=== PATIENT | male | born 1960 | race Caucasian/White ===

== ENCOUNTER → 2017-10-30 | Outpatient (CLI) | payer OTHER ==
--- NOTE | 2017-10-31 13:56 | MRI ---
MRI brain without contrast Indication: Altered mental status Comparison: None Technique: Multiplanar, multi sequence MR images of the brain were obtained without contrast. Findings: There is mild global atrophy with concomitant ventricular and sulcal enlargement. There is no abnormal restricted diffusion to suggest acute or subacute infarct. There is no acute bleed, mass, mass effect, or abnormal extra-axial collection. The major intracranial flow voids are noted. The vi sualized paranasal sinuses and mastoid air cells are grossly clear. Impression: No acute intracranial abnormality or other focal etiology for patient's symptoms. Reported By:
== END ==
LOC: RAD 13:35
PROVIDERS: ATTEND Internal Medicine
DX: R41.82 Altered mental status, unspecified (principal); R27.0 Ataxia, unspecified
CPT/HCPCS: 70551

== ENCOUNTER → 2017-12-19 | Outpatient (CLI) | payer OTHER ==
[2017-12-19 14:32] LABS: BASOPHILS # (AUTO) 0.1 X10^3/uL (0.0-0.1); BASOPHILS % (AUTO) 0.7 % (0.2-1.0); EOSINOPHILS # (AUTO) 0.1 x10^3/uL (0.0-0.2); HEMATOCRIT 36.5 % (42.0-54.0); HEMOGLOBIN 12.5 g/dL (13.5-18.0); LYMPHOCYTES # (AUTO) 2.6 X10^3/uL (1.3-2.9); LYMPHOCYTES % (AUTO) 25.2 % (21.0-51.0); MEAN CORPUSCULAR HEMOGLOBIN 28.4 pg (27.0-34.0); MEAN CORPUSCULAR HGB CONC 34.3 g/dL (33.0-35.0); MEAN CORPUSCULAR VOLUME 82.7 fL (80.0-100.0); MEAN PLATELET VOLUME 8.1 fL (7.4-11.0); MONOCYTES # (AUTO) 0.8 x10^3/uL (0.3-0.8); NEUTROPHILS # (AUTO) 6.8 x10^3/uL (2.2-4.8); NEUTROPHILS % (AUTO) 65.1 % (42.0-75.0); PLATELET COUNT 245 X10^3/uL (150.0-450.0); RED BLOOD COUNT 4.41 X10^6/uL (4.7-6.0); RED CELL DISTRIBUTION WIDTH 14.2 % (11.6-16.5); WHITE BLOOD COUNT 10.5 X10^3/uL (3.6-10.0)
[2017-12-19 14:46] LABS: ALANINE AMINOTRANSFERASE 24 Units/L (12-78); ALBUMIN 3.8 g/dL (3.4-5.0); ALKALINE PHOSPHATASE 68 Units/L (46-116); ASPARTATE AMINO TRANSFERASE 13 Units/L (15-37); BLOOD UREA NITROGEN 21 mg/dL (7-18); CALCIUM 8.7 mg/dL (8.5-10.1); CARBON DIOXIDE 26.9 mmol/L (21-32); CHLORIDE 98 mmol/L (98-107); COR NA(FOR HYPERGLY) 140 mmol/L (136-145); CREATININE 1.78 mg/dL (0.70-1.30); SODIUM 136 mmol/L (136-145); TOTAL PROTEIN 7.8 g/dL (6.4-8.2); eGFR BLACK RACES 51 (>60); eGFR NON BLACK RACES 42 (>60)
== END ==
LOC: LAB 14:08
PROVIDERS: ATTEND Internal Medicine Gastroenterology
DX: K92.1 Melena (principal); K64.8 Other hemorrhoids
CPT/HCPCS: 36415; 80053; 85025

== ENCOUNTER 2018-01-11 06:57 | Day surgery (SDC) | payer OTHER ==
[2018-01-11] MEDS ORDERED: D5 LR 1000 ML 1,000 ML IV ONE (07:09)
[2018-01-11] MEDS ORDERED: DIPRIVAN VIAL 20 ML ONE (08:40)
[2018-01-11 09:23] VITALS: BP 127/67
== END 2018-01-11 09:20 | disposition home or self-care (01) | DRG 392 ==
LOC: SURG1 06:57
PROVIDERS: ATTEND Internal Medicine Gastroenterology
PROC: 0DJD8ZZ Inspection of Lower Intestinal Tract, Via Natural or Artificial Opening Endoscopic (ICD-10-PCS; principal; 2018-01-11 09:15)
PROC: 0DBE8ZX Excision of Large Intestine, Via Natural or Artificial Opening Endoscopic, Diagnostic (ICD-10-PCS; principal; 2018-01-11 09:15)
DX: R19.4 Change in bowel habit (principal); K92.1 Melena; R10.84 Generalized abdominal pain; K64.0 First degree hemorrhoids
CPT/HCPCS: A4217; J3490; J7120

== ENCOUNTER 2018-01-18 08:45 | Day surgery (SDC) | payer OTHER ==
[2018-01-18] MEDS ORDERED: NS 1000 ML 1,000 ML ONE (09:37)
[2018-01-18] MEDS ORDERED: DIPRIVAN VIAL 20 ML ONE (11:32)
[2018-01-18 14:37] VITALS: BP 136/83
== END 2018-01-18 12:05 | disposition home or self-care (01) ==
LOC: SURG1 08:45
PROVIDERS: ATTEND Internal Medicine Gastroenterology
PROC: 0DB68ZX Excision of Stomach, Via Natural or Artificial Opening Endoscopic, Diagnostic (ICD-10-PCS; principal; 2018-01-18 12:00)
PROC: 0DJ08ZZ Inspection of Upper Intestinal Tract, Via Natural or Artificial Opening Endoscopic (ICD-10-PCS; principal; 2018-01-18 12:00)
PROC: 0DB88ZX Excision of Small Intestine, Via Natural or Artificial Opening Endoscopic, Diagnostic (ICD-10-PCS; principal; 2018-01-18 12:00)
DX: K21.9 Gastro-esophageal reflux disease without esophagitis (principal); K29.60 Other gastritis without bleeding; K20.8 Other esophagitis; K22.8 Other specified diseases of esophagus; Z87.19 Personal history of other diseases of the digestive system
CPT/HCPCS: A4217; J3490

== ENCOUNTER → 2018-02-19 | Outpatient (CLI) | payer OTHER ==
--- NOTE | 2018-02-19 10:51 | MRI ---
MRI lumbar spine without contrast Indication: Lower back pain Technique: Multiplanar, multi sequence imaging of the lumbar spine without IV contrast administration . Findings: Lumbar spine alignment is normal. There is no significant disc space loss or disc desiccati on within the lumbar spine. No prevertebral or paraspinal soft tissue swelling. No localizing bone ma rrow signal abnormality within the lumbar spine. Conus has a normal termination. Visualized portions of the abdomen and pelvis demonstrates no acute inflammatory process. At T12-L1 unremarkable aside for mild facet arthropathy. At L1-2 unremarkable aside for mild facet arthropathy. At L2-3 unremarkable aside for mild facet arthropathy. At L3-4 unremarkable aside for mild facet arthropathy and ligamentum flavum hypertrophy At L4-5 broad-based disc bulge and facet arthropathy causes mild spinal canal stenosis with mild-to-m oderate right and minimal left-sided bony neural foraminal stenosis At L5-S1 minimal broad-based disc bulge with left greater than right facet arthropathy causes no spin al canal stenosis with very mild right and [id number] left-sided bony neural foraminal stenosis . Impression: Multilevel discogenic degenerative change and facet arthropathy causing varying degrees o f spinal canal and bony neural foraminal stenosis as described above. Reported By:
== END | disposition home or self-care (01) ==
LOC: RAD 09:13
PROVIDERS: ATTEND Internal Medicine
DX: M51.26 Other intervertebral disc displacement, lumbar region (principal); M47.896 Other spondylosis, lumbar region
CPT/HCPCS: 72148

== ENCOUNTER 2023-09-05 15:37 | Observation (INO) ==
--- NOTE | 2023-09-05 16:57 | DR.DIZZY ---
HPI Time seen Time Seen by Provider: 09/05/23 16:56 PCP Primary Care Physician: Luis A Complaint Chief Complaint Doctor Comments: 63-year-old male presents with dizziness and near syncope. Has been having episodes over the past 3 months. Patient on b lood pressure medications, saw Dr. Gunn last week, blood pressure was low but he did not have any medicines decreased. BP low at triage today. Denies fever, chills, upper respiratory symptoms, vomiting or diarrhea. No bladder issues other than increased voiding. Patient does not have any injuries from his fall today. Chief Complaint:: Pt c/o dizziness, increased voiding, diarrhea. Pt states he fell around 12pm today at home, hit head on the floor, did not lose consc iousness, needed help getting out of floor, states typically he is independent at home. denies nausea, vomitting, chest pain, abdominal pain Self Treatment fo Chief Complaint: took prescribed meds this am, including BP meds. COVID-19 Coronavirus risk:travel/contact w/high risk person: No Has patient experienced Coronavirus symptoms: No Nurses Notes Reviewed Nurses Notes Review: Yes Source History Provided: Patient Mode of Arrival Mode of Arrival: Wheelchair Timing Onset of Chief Complaint: 09/05/23 Context Stroke Symptoms: None PMH PMH Past Medical History: Yes Past Medical History: Anxiety, COPD, Depression, Diabetes, Hypertension and Sleep Apnea Past Surgical History: Yes Surgical History: Other Family History History of Family Medical Conditions: Yes Family Medical History: Diabetes Mellitus and Hypertension Social History Does patient currently use any type of tobacco product: No Have you used tobacco products in the last 12 months: No Type of Tobacco Use: None Does any household member use tobacco: No Alcohol Use: None Do you use any recreational Drugs:: No Lives With: Family Lives Where: Home Travel Risk Coronavirus risk:travel/contact w/high risk person: No Has patient experienced Coronavirus symptoms: No Infectious screening In the last 2 months have you had wt loss of >10#?: NO Have you had fever, night sweats or hemotysis?: No Have you traveled outside the country in the last 6 months?: No Isolation: Standard ROS Review of Systems Constitutional: Weakness Eyes: No Symptoms Reported ENTM: No Symptoms Reported Respiratoy: No Symptoms Reported Cardiovascular: No Symptoms Reported Gastrointestinal/Abdominal: No Symptoms Reported Genitourinary: No Symptoms Reported Neurological: Weakness Musculoskeletal: No Symptoms Reported Integumentary: No Symptoms Reported Hematologic/Lymphatic: No Symptoms Reported All Other Systems: Reviewed and Negative PE Vital Signs Vitals: Vital Signs Temperature 98.9 F Pulse Rate 80 Pulse Rate 80 Pulse Rate 80 Pulse Rate 81 Pulse Rate 80 Pulse Rate 85 Pulse Rate 79 Pulse Rate 80 Pulse Rate 82 Pulse Rate 81 Pulse Rate 80 Pulse Rate 81 Pulse Rate 81 Respiratory Rate 15 Respiratory Rate 16 Respiratory Rate 15 Respiratory Rate 16 Respiratory Rate 16 Respiratory Rate 35 Respiratory Rate 15 Respiratory Rate 16 Respiratory Rate 38 Respiratory Rate 23 Respiratory Rate 19 Respiratory Rate 12 Respiratory Rate 16 Blood Pressure 150/70 Blood Pressure 122/60 Blood Pressure 121/67 Blood Pressure 123/58 Blood Pressure 105/52 Blood Pressure 86/54 O2 Sat by Pulse Oximetry 96 O2 Sat by Pulse Oximetry 98 O2 Sat by Pulse Oximetry 98 O2 Sat by Pulse Oximetry 94 General General Appearance: Alert and In No Apparent Distress Head Head Exam: Normal Inspection, Atraumatic and Normocephalic Eyes Eye exam: PERRL and EOMI ENT ENT Exam: Normal Exam, Normal Oropharynx and Mucous Membranes Moist Neck Neck Exam: Normal Inspection and Full ROM Respiratory Respiratory Exam: Normal Lung Sounds Bilat; negative Accessory Muscle Use or Respiratory Distress Cardiovascular Cardiovascular Exam: Regular Rate, Normal Rhythm and Normal Heart Sounds Abdominal Exam Abdominal Exam: Normal Bowel Sounds and Soft; negative Tenderness Extremeties Extremities Exam: Normal Inspection; negative Edema Neurologic Neurological Exam: Alert, Oriented X3 and CN II-XII Intact; negative Motor Sensory Deficit Skin Skin Exam: Warm and Dry COURSE Treatment Treatment: 63-year-old male on multiple medications presents with near syncopal episode. BP on arrival was 86/54. Denies any acute losses, no vomiting or diarrhea. Reportedly was seen in the office last week with the blood pressure being somewhat low, no medications were adjusted. Work-up initiated. Patient hit his head today, no visible wounds. CT of the brain was unremarkable. Labs overall acceptable. He does have chronic renal insufficiency. Currently his BUN/creatinine are higher than usual. Probably his degree of volume depletion. Blood pressure came up after giving IV fluids. Recommend observation admission for further fluids, further evaluation. 2003 -discussed with Dr. Chang (covering for Dr. Gunn). Agrees to observation admission. Will continue IV fluids. Baseline admission orders written, needs to have home meds updated, would hold some of his BP meds. ROR Labs Reviewed Laboratory Results Reviewed?: Yes 09/06/23 04:03 09/06/23 04:03 Laboratory: WBC 10.9 X10^3/uL (3.6-10.0) H 09/05/23 17:30 RBC 4.06 X10^6/uL (4.7-6.0) L 09/05/23 17:30 Hgb 11.6 g/dL (13.5-18.0) L 09/05/23 17:30 Hct 34.1 % (42.0-54.0) L 09/05/23 17:30 MCV 84.1 fL (80.0-100.0) 09/05/23 17:30 MCH 28.5 pg (27.0-34.0) 09/05/23 17: MCHC 33.9 g/dL (33.0-35.0) 09/05/23 17:30 RDW 14.8 % (11.6-16.5) 09/05/23 17:30 Plt Count 229 X10^3/uL (150.0-450.0) 09/05/23 17:30 MPV 6.9 fL (7.4-11.0) L 09/05/23 17:30 Neut % (Auto) 75.7 % (42.0-75.0) H 09/05/23 17:30 Lymph % (Auto) 13.0 % (21.0-51.0) L 09/05/23 17:30 [place] % (Auto) 8.7 % (0.0-13.0) 09/05/23 17:30 Eos % (Auto) 2.1 % (0.9-2.9) 09/05/23 17:30 Baso % (Auto) 0.5 % (0.2-1.0) 09/05/23 17:30 Neut # (Auto) 8.3 x10^3/uL (2.2-4.8) H 09/05/23 17:30 Lymph # (Auto) 1.4 X10^3/uL (1.3-2.9) 09/05/23 17:30 [place] # (Auto) 0.9 x10^3/uL (0.3-0.8) H 09/05/23 17:30 Eos # (Auto) 0.2 x10^3/uL (0.0-0.2) 09/05/23 17:30 Baso # (Auto) 0.1 X10^3/uL (0.0-0.1) 09/05/23 17:30 Absolute Nucleated RBC 0.1 /100WBC 09/05/23 17:30 Sodium 134 mmol/L (136-145) L 09/05/23 17:30 Corrected Sodium 135 mmol/L (136-145) L 09/05/23 17:30 Potassium 4.5 mmol/L (3.5-5.1) 09/05/23 17:30 Chloride 101 mmol/L (98-107) 09/05/23 17:30 Carbon Dioxide 30.6 mmol/L (21-32) 09/05/23 17:30 BUN 55 mg/dL (7-18) H 09/05/23 17:30 Creatinine 2.97 mg/dL (0.70-1.30) H 09/05/23 17:30 Est GFR (MDRD) Af Amer 28 (>60) L 09/05/23 17:30 Est GFR (MDRD) Non-Af 23 (>60) L 09/05/23 17:30 Glucose 143 mg/dL (65-99) H 09/05/23 17:30 Calcium 8.2 mg/dL (8.5-10.1) L 09/05/23 17:30 Corrected Calcium TNP 09/05/23 17:30 Total Bilirubin 0.30 mg/dL (0.2-1.0) 09/05/23 17:30 AST 13 Units/L (15-37) L 09/05/23 17:30 ALT 14 Units/L (12-78) 09/05/23 17:30 Alkaline Phosphatase 115 Units/L (46-116) 09/05/23 17:30 Creatine Kinase 123 Units/L (39-308) 09/05/23 17:30 Troponin I High Sens 7.3 ng/L (4.0-60.0) 09/05/23 17:30 B-Natriuretic Peptide 7.7 pg/mL (0-79) 09/05/23 17:30 Total Protein 7.1 g/dL (6.4-8.2) 09/05/23 17:30 Albumin 3.4 g/dL (3.4-5.0) 09/05/23 17:30 Globulin 3.7 g/dL (2.5-4.5) 09/05/23 17:30 Albumin/Globulin Ratio 0.9 Ratio (1.1-2.1) L 09/05/23 17:30 Specimen Type Clean catch urine 09/05/23 18:46 Urine Color Yellow (YELLOW) 09/05/23 18:46 Urine Appearance Clear (CLEAR) 09/05/23 18:46 Urine pH 5.0 (5.0 - 8.0) 09/05/23 18:46 Ur Specific [place] 1.025 (1.000-1.030) 09/05/23 18:46 Urine Protein 2+ (NEGATIVE) 09/05/23 18:46 Urine Glucose (UA) 3+ (NEGATIVE) 09/05/23 18:46 Urine Ketones Negative (NEGATIVE) 09/05/23 18:46 Urine Blood Negative (NEGATIVE) 09/05/23 18:46 Urine Nitrite Negative (NEGATIVE) 09/05/23 18:46 Urine Bilirubin Negative (NEGATIVE) 09/05/23 18:46 Urine Urobilinogen Normal (NORMAL) 09/05/23 18:46 Ur Leukocyte Esterase Negative (NEGATIVE) 09/05/23 18:46 Urine RBC 0-2 /HPF (0-3) 09/05/23 18:46 Urine WBC 0-2 /HPF (0-5) 09/05/23 18:46 Ur Squamous Epith Cells Few /HPF (NEGATIVE) 09/05/23 18:46 Urine Bacteria Trace /HPF (NEGATIVE) 09/05/23 18:46 Hyaline Casts Moderate /LPF (NEGATIVE) 09/05/23 18:46 Urine Mucus Few /HPF (NEGATIVE) 09/05/23 18:46 Ur Culture Indicated? No/not indicated 09/05/23 18:46 Labs show worsening kidney numbers XRAY XRAY Interpreted by: Both X-ray Results: Cardiomegaly present EKG Rate: 80 [place]: LAD Rhythm: NSR Block: 1 and RBBB (With left anterior fascicular block) ST: Nonsp Opioid Opioid Risk Tool Age (Armando box if 16-45): No History of Preadolescent Sexual Abuse: No Total: 0 Total Score Risk Category: Low Risk Copyright: Anton SANTIZO predicting aberrant behaviors Discharge Plan Diagnosis Discharge Problem: Acute hypotension, Volume depletion Discharge Plan Patient Disposition: 09 ADMITTED INPATIENT Condition: Stable
[2023-09-05] MEDS ORDERED: NS 1,000 ML IV 1,000 ML IV ONE (17:01)
[2023-09-05] MEDS ORDERED: NS 1,000 ML IV 1,000 ML ONE (17:27)
--- NOTE | 2023-09-05 17:29 | CT ---
EXAM:BRAIN W/O CONHISTORY:syncope, fall, off balance;COMPARISON:Head CT examination dated May 07, 2023TECHNIQUE:Multiple helical images of the brain from the vertex to the occiput were obtained. Coronal and sagittal reformats were performed.Dose reduction techniques including Automated Exposure Control (AEC) and adjustment of mA and kV were utilized.FINDINGS:No acute intraparenchymal hemorrhage or cytotoxic edema is identified. No extra-axial fluid collections are seen. No alteration in the attenuation of the brain parenchyma can be identified to suggest acute or subacute ischemic change. However, if the patients symptoms are clinically & neurologically concerning for an acute ischemic event, then MR imaging of the brain with DWI sequencing could be considered to exclude an acute CVA (based on this patient's clinical presentation and the specific medical circumstances). Also, if there remains strong concern for an intracranial neoplasm or mass, then follow-up with CT or MR imaging of the brain with IV contrast is recommended for improved inspection (which would be more sensitive for the assessment of any intracranial neoplasia). The ventricular system is symmetric and nondilated. The extracranial structures are grossly unremarkable. The visualized paranasal sinuses and mastoid air cells are relatively clear on this examination as well.IMPRESSION:Negative Head CT Exam.THIS IS AN ELECTRONICALLY VERIFIED FINAL [id number]/05/2023 5:25 PM - Electronically signed by Catarino Durbin
--- NOTE | 2023-09-05 17:33 | RAD ---
EXAM:CHEST, 1 VIEWHISTORY:syncope;COMPARISON:Chest CT examination dated May 07, 2022FINDINGS:The trachea is midline. The cardiac silhouette is enlarged. The lungs are clear without focal infiltrate or effusion. The bony thorax is unremarkable.IMPRESSION:Enlarged cardiomediastinal silhouette without additional cardiopulmonary abnormalities seen.THIS IS AN ELECTRONICALLY VERIFIED FINAL [id number]/05/2023 5:30 PM - Electronically signed by Catarino Durbin
[2023-09-05 17:39] LABS: BASOPHILS # (AUTO) 0.1 X10^3/uL (0.0-0.1); BASOPHILS % (AUTO) 0.5 % (0.2-1.0); EOSINOPHILS # (AUTO) 0.2 x10^3/uL (0.0-0.2); EOSINOPHILS % (AUTO) 2.1 % (0.9-2.9); HEMATOCRIT 34.1 % (42.0-54.0); HEMOGLOBIN 11.6 g/dL (13.5-18.0); LYMPHOCYTES # (AUTO) 1.4 X10^3/uL (1.3-2.9); MEAN CORPUSCULAR HEMOGLOBIN 28.5 pg (27.0-34.0); MEAN CORPUSCULAR HGB CONC 33.9 g/dL (33.0-35.0); MEAN CORPUSCULAR VOLUME 84.1 fL (80.0-100.0); MEAN PLATELET VOLUME 6.9 fL (7.4-11.0); MONOCYTES # (AUTO) 0.9 x10^3/uL (0.3-0.8); MONOCYTES % (AUTO) 8.7 % (0.0-13.0); NEUTROPHILS # (AUTO) 8.3 x10^3/uL (2.2-4.8); NEUTROPHILS % (AUTO) 75.7 % (42.0-75.0); PLATELET COUNT 229 X10^3/uL (150.0-450.0); RED BLOOD COUNT 4.06 X10^6/uL (4.7-6.0); RED CELL DISTRIBUTION WIDTH 14.8 % (11.6-16.5); WHITE BLOOD COUNT 10.9 X10^3/uL (3.6-10.0)
--- NOTE | 2023-09-05 17:44 | EKG ---
Test Reason : syncope Blood Pressure : */* mmHG Vent. Rate : 80 BPM Atrial Rate : 80 BPM P-R Int : 236 ms QRS Dur : 174 ms QT Int : 442 ms P-R-T Axes : 46 -54 26 degrees QTc Int : 509 ms Sinus rhythm with 1st degree AV block Right bundle branch block Left anterior fascicular block Bifascicular block Abnormal ECG When compared with ECG of 07-MAY-2023 12:42, No significant change was found Confirmed by Gagandeep Peraza ([id number]) on 09/06/2023 12:21:55 PM Referred By: Confirmed By: Gagandeep Peraza
[2023-09-05 17:52] LABS: ALANINE AMINOTRANSFERASE 14 Units/L (12-78); ALBUMIN 3.4 g/dL (3.4-5.0); ALKALINE PHOSPHATASE 115 Units/L (46-116); ASPARTATE AMINO TRANSFERASE 13 Units/L (15-37); BLOOD UREA NITROGEN 55 mg/dL (7-18); CALCIUM 8.2 mg/dL (8.5-10.1); CARBON DIOXIDE 30.6 mmol/L (21-32); CHLORIDE 101 mmol/L (98-107); COR NA(FOR HYPERGLY) 135 mmol/L (136-145); CREATINE KINASE 123 Units/L (39-308); CREATININE 2.97 mg/dL (0.70-1.30); GLUCOSE 143 mg/dL (65-99); POTASSIUM 4.5 mmol/L (3.5-5.1); SODIUM 134 mmol/L (136-145); TOTAL PROTEIN 7.1 g/dL (6.4-8.2); eGFR NON BLACK RACES 23 (>60)
[2023-09-05 18:55] LABS: BILIRUBIN,URINE NEGATIVE (NEGATIVE); BLOOD/HEMOGLOBIN,URINE NEGATIVE (NEGATIVE); GLUCOSE, URINE 3+ (NEGATIVE); KETONES,URINE NEGATIVE (NEGATIVE); LEUKOCYTE ESTERASE ,URINE NEGATIVE (NEGATIVE); NITRITES,URINE NEGATIVE (NEGATIVE); PROTEIN,URINE 2+ (NEGATIVE); UROBILINOGEN,URINE NORMAL (NORMAL)
[2023-09-05 18:59] LABS: APPEARANCE,URINE CLEAR (CLEAR); COLOR,URINE YELLOW (YELLOW)
[2023-09-05 19:00] LABS: BACTERIA,URINE TRACE /HPF (NEGATIVE); HYALINE CASTS, URINE MODERATE /LPF (NEGATIVE); RBC,URINE 0-2 /HPF (0-3); SQUAMOUS EPITHELIAL CELL,UR FEW /HPF (NEGATIVE)
[2023-09-05 21:42] VITALS: BMI 43.4
[2023-09-05] MEDS ORDERED: CONSULT PHARMACY - POTASSIUM & MAGNESIUM XX SCH (21:48)
[2023-09-05] MEDS: D5 1/2 NS 1,000 ML 1,000 ML IV SCH (21:50)
[2023-09-06 04:59] LABS: BASOPHILS # (AUTO) 0.1 X10^3/uL (0.0-0.1); BASOPHILS % (AUTO) 0.7 % (0.2-1.0); EOSINOPHILS # (AUTO) 0.2 x10^3/uL (0.0-0.2); EOSINOPHILS % (AUTO) 2.4 % (0.9-2.9); HEMATOCRIT 34.7 % (42.0-54.0); HEMOGLOBIN 11.6 g/dL (13.5-18.0); LYMPHOCYTES # (AUTO) 1.6 X10^3/uL (1.3-2.9); LYMPHOCYTES % (AUTO) 18.5 % (21.0-51.0); MEAN CORPUSCULAR HEMOGLOBIN 28.1 pg (27.0-34.0); MEAN CORPUSCULAR HGB CONC 33.4 g/dL (33.0-35.0); MEAN CORPUSCULAR VOLUME 84.1 fL (80.0-100.0); MEAN PLATELET VOLUME 7.3 fL (7.4-11.0); MONOCYTES # (AUTO) 0.6 x10^3/uL (0.3-0.8); MONOCYTES % (AUTO) 7.4 % (0.0-13.0); NEUTROPHILS # (AUTO) 6.2 x10^3/uL (2.2-4.8); PLATELET COUNT 236 X10^3/uL (150.0-450.0); RED BLOOD COUNT 4.13 X10^6/uL (4.7-6.0); RED CELL DISTRIBUTION WIDTH 14.4 % (11.6-16.5); WHITE BLOOD COUNT 8.7 X10^3/uL (3.6-10.0)
[2023-09-06 05:18] LABS: ALBUMIN 3.2 g/dL (3.4-5.0); CARBON DIOXIDE 29.4 mmol/L (21-32); COR CA(FOR HYPOALB) 8.6 mg/dL (8.5-10.1); CREATININE 2.4 mg/dL (0.70-1.30); POTASSIUM 3.7 mmol/L (3.5-5.1); TOTAL PROTEIN 6.9 g/dL (6.4-8.2)
[2023-09-06] MEDS ORDERED: CONSULT PHARMACY - POTASSIUM & MAGNESIUM XX SCH (06:00)
[2023-09-06] MEDS: D5 1/2 NS 1,000 ML 1,000 ML IV SCH ×4 (06:25→22:21)
[2023-09-06] MEDS: LOVENOX INJ 40 MG SYR SC SCH (08:44)
[2023-09-06] MEDS: PULMICORT NEB TX 0.5 MG NEB SCH ×2 (08:53→21:00)
[2023-09-06] MEDS: PROVENTIL NEB TX 0.083% 2.5MG/ 3ML NEB SCH ×2 (08:53→21:00)
[2023-09-06] MEDS ORDERED: MICRO K EXTEN CAP 10 MEQ PO SCH (09:00)
[2023-09-06] MEDS ORDERED: NovoLIN R (or HumuLIN R) SUBCUT PRN (11:34)
--- NOTE | 2023-09-06 11:34 | DR.H&P ---
H&P - History & Physical for Day of: H&P Date: 09/05/23 - Chief Complaint Chief Complaint: DIZZINESS, FAINT, INCREASED VOIDING - History of Present Illness History of Present Illness: IS A 63 YEAR OLD PATIENT OF OURS. HE HAS A PMH OF ANXIETY, COPD, DEPRESSION, DM II, HTN, HYPERLIPIDEMIA, HYPOTHYROIDISM, CHF, AND SLEEP APNEA. HE PRESENTED TO THE HOSPITAL WITH COMPLAINTS OF DIZZINESS, FEELING FAINT, AND INCREASED VOIDING. PATIENT REPORTS THAT HE FELL AT HOME EARLIER IN THE DAY. HE ADMITS TO HITTING HIS HEAD ON THE FLOOR, BUT DID NOT LOSE CONSCIOUNESS. HE REPORTS THAT HE IS TYPICALLY INDEPENDENT AT HOME. HE REPORTS THAT HIS BLOOD PRESSURE HAS BEEN LOW FOR THE PAST FEW WEEKS, BUT THAT HE HAS JUST BEEN MONITORING IT. HE DENIES FEVER, CHILLS, UPPER RESPIRATORY SX, VOMITING, OR DIARRHEA. HE DOES NOT HAVE ANY VISABLE INJURIES FROM HIS FALL EARLIER IN THE DAY. HE IS ABLE TO ANSWER QUESTIONS AND FOLLOW COMMANDS APPROPRIATELY ON EXAMINATION. ON ARRIVAL, HIS VITALS WERE: 98.9-81-16-94%-86/54. LABS WERE OBTAINED. WBC 10.9, RBC 4.06, HGB 11.6, HCT 34.1, PLT COUNT 229, SODIUM 134, POTASSIUM 4.5, CHLORIDE 101, CARBON DIOXIDE 30.6, BUN 55, CREATININE 2.97, GLUCOSE 143, CALCIUM 8.2, TOTAL BILI 0.30, AST 13, ALT 14, ALK PHOS 115, CREATINE KINASE 123, TROPONIN 7.3, BNP 7.7, TOTAL PROTEIN 7.1, ALBUMIN 3.4. URINALYSIS WAS OBTAINED AND WAS UNREMARKABLE. A BRAIN CT WAS OBTAINED AND REVEALED: Negative Head CT Exam. A CHEST XRAY WAS OBTAINED AND REVEALED: Enlarged cardiomediastinal silhouette without additional cardiopulmonary abnormalities seen. EKG WAS OBTAINED AND REVEALED SINUS RHYTHM WITH 1ST DEGREE AV BLOCK AT 80 BPM. IN THE ER, HE WAS GIVEN A NORMAL SALINE BOLUS. HIS BLOOD PRESSURE INCREASED TO 123/58. PATIENT WAS ADMITTED TO THE HOSPITAL, OBSERVATION STATUS, FOR FURTHER EVALUATION AND TREATMENT OF ACUTE ON CHRONIC R ENAL FAILURE, DEHYDRATION, ACUTE HYPOTENSION. HE WAS STARTED ON D51/2 NS AT 125 ML/HR, ALBUTEROL NEBS BID, PULMICORT NEBS BID, LOVENOX 40MG SC DAILY. WE WILL RESUME HIS HOME MEDICATIONS OF VENLAFAXINE, TRAZODONE, ROSUVASTATIN, QUETIAPINE, LITHIUM CARBONATE, LEVOTHYROXINE, GLIMEPIRIDE, GABAPENTIN, CLONAZEPAM, AND CARBIDOPA-LEVODOPA. OTHERWISE, WE PLAN TO FOLLOW UP WITH AM LABS AND CONTINUE TO MONITOR. TIME SPENT ON CLINICAL ASSESSMENT, REVIEWING LABS AND IMAGING, DECISION MAKING, AND DOCUMENTATION GREATER THAN 75 MINUTES. - Past Medical History Past Medical History: Anxiety, COPD, Depression, Diabetes, Dyslipidemia, Hypertension, Hypothyroidism, Sleep Apnea - Past Surgical History Surgical History: Other - Family History Family Medical History: Diabetes Mellitus, Cancer - Social History Does patient currently use any type of tobacco product: No Have you used tobacco products in the last 12 months: No Type of Tobacco Use: None Does any household member use tobacco: No Alcohol Use: None Drug Use: None - Review of Systems Constitutional: Weakness. denies: Fever, Chills Eyes: No Symptoms Reported ENT: No Symptoms Reported Respiratory: No Symptoms Reported Cardiovascular: Light Headedness Gastrointestinal: No Symptoms Reported Genitourinary: No Symptoms Reported Musculoskeletal: No Symptoms Reported Skin: No Symptoms Reported Neurological: Weakness - Physical Exam Vital Signs: Vital Signs Temperature 97.9 F Temperature 97.2 F Pulse Rate [Radial] 78 Pulse Rate [Radial] 77 Pulse Rate 77 Respiratory Rate 20 Respiratory Rate 20 Blood Pressure [Right Arm] 149/67 Blood Pressure [Right Arm] 177/79 O2 Sat by Pulse Oximetry 99 O2 Sat by Pulse Oximetry 95 O2 Sat by Pulse Oximetry 99 Oriented: Normal Eyes: Normal Ear: Normal Nose: Normal Throat: Normal Respiratory: Diminished Throughout Cardiovascular: Normal : Normal Auscultation: Bowel Sounds: Normal Palpation: Normal Tenderness: Normal Skin: Normal Musculoskeletal: Normal Psychiatric: Normal Mood Description: Calm Affect: Normal Speech Pattern: Clear - Assessment/Plan (1) Acute on chronic renal failure Qualifiers: Acute renal failure type: unspecified Chronic kidney disease stage: unspecified stage Qualified Code(s): N17.9 - Acute kidney failure, unspecified; N18.9 - Chronic kidney disease, unspecified Status: Acute Plan: ADMIT, D51/2 NS AT 125 ML/HR, ALBUTEROL NEBS BID, PULMICORT NEBS BID, LOVENOX 40MG SC DAILY, OTBS ACHS, HUMULIN R SLIDING SCALE. RESUME HOME MEDS (2) Dehydration Status: Acute (3) Acute hypotension Status: Acute (4) COPD (chronic obstructive pulmonary disease) Qualifiers: COPD type: unspecified COPD Qualified Code(s): J44.9 - Chronic obstructive pulmonary disease, unspecified Status: Chronic (5) Diabetes mellitus Qualifiers: Diabetes mellitus type: type 2 Diabetes mellitus skill labor insulin use: with senior care use Diabetes mellitus complication status: with hyperglycemia Qualified Code(s): E11.65 - Type 2 diabetes mellitus with hyperglycemia; Z79.4 - prison (current) use of insulin Status: Acute (6) Depression Qualifiers: Depression Type: unspecified Qualified Code(s): F32.A - Depression, unspecified Status: Chronic Plan: RESUME HOME MEDS (7) Hyperlipidemia Qualifiers: Hyperlipidemia type: mixed hyperlipidemia Qualified Code(s): E78.2 - Mixed hyperlipidemia Status: Chronic Plan: RESUME HOME MEDS (8) Hypothyroidism Qualifiers: Hypothyroidism type: acquired Qualified Code(s): E03.9 - Hypothyroidism, unspecified Status: Chronic Plan: RESUME HOME MEDS - Allergies Allergies/Adverse Reactions: Allergies Allergy/AdvReac Type Severity Reaction Status Date / Time No Known Drug Allergies Allergy Verified 11/04/19 14:52 - Medications Home Medications: Home Medications Medication Instructions Recorded Confirmed carbidopa 10 mg-levodopa 100 mg 1 tab PO TID 05/07/23 09/05/23 tablet clonazepam 1 mg tablet 1 tab PO HS 05/07/23 09/05/23 furosemide 20 mg tablet 1 tab PO BID 05/07/23 09/05/23 gabapentin 100 mg capsule 1 cap PO TID 05/07/23 09/05/23 glimepiride 4 mg tablet 1 tab PO BID 05/07/23 09/05/23 levothyroxine 88 mcg tablet 1 tab PO QAM 05/07/23 09/05/23 lithium carbonate 150 mg capsule 1 cap PO BID 05/07/23 09/05/23 losartan 100 mg tablet 1 tab PO QAM 05/07/23 09/05/23 meclizine 25 mg tablet 2 tab PO BID 05/07/23 05/07/23 metoprolol succinate 25 mg 1 tab PO QDAY 05/07/23 05/07/23 tablet,extended release 24 hr ondansetron HCl 4 mg tablet 1 tab PO TID PRN nausea/vomiting 05/07/23 05/07/23 quetiapine 200 mg tablet 1 tab PO BID 05/07/23 09/05/23 rosuvastatin 20 mg tablet 1 tab PO QPM 05/07/23 09/05/23 semaglutide 2 mg/dose (8 mg/3 mL) 2 mg subcut QWEEK 05/07/23 09/05/23 subcutaneous pen injector (Ozempic) trazodone 150 mg tablet 1 tab PO QPM 05/07/23 09/05/23 venlafaxine 150 mg 1 cap PO QDAY 05/07/23 09/05/23 capsule,extended release 24 hr
[2023-09-06] MEDS: SYNTHROID 88 mcg TAB PO SCH (12:28)
[2023-09-06] MEDS: EFFEXOR XR 150 MG CAP 24-HR PO SCH (12:28)
[2023-09-06] MEDS: AMARYL TAB 4 MG PO SCH ×2 (12:28→22:05)
[2023-09-06] MEDS ORDERED: SINEMET (PLAIN) 10/100 MG PO SCH (14:00)
[2023-09-06] MEDS: NEURONTIN CAP 100 MG PO SCH ×2 (14:44→22:05)
[2023-09-06] MEDS: LITHIUM CARBONATE 150 MG PO SCH ×2 (14:44→22:08)
[2023-09-06] MEDS ORDERED: SNACK - Diabetic Appropriate PO SCH ×2 (20:00)
[2023-09-06] MEDS ORDERED: CRESTOR TAB 10 MG PO SCH (21:00)
[2023-09-06] MEDS ORDERED: DESYREL PO SCH (21:00)
[2023-09-06] MEDS ORDERED: KLONOPIN TAB 1 MG PO SCH (21:00)
[2023-09-07 05:35] LABS: BASOPHILS % (AUTO) 0.5 % (0.2-1.0); EOSINOPHILS # (AUTO) 0.2 x10^3/uL (0.0-0.2); EOSINOPHILS % (AUTO) 2.1 % (0.9-2.9); HEMATOCRIT 31.3 % (42.0-54.0); HEMOGLOBIN 10.5 g/dL (13.5-18.0); LYMPHOCYTES # (AUTO) 1.6 X10^3/uL (1.3-2.9); LYMPHOCYTES % (AUTO) 20.8 % (21.0-51.0); MEAN CORPUSCULAR HEMOGLOBIN 28.2 pg (27.0-34.0); MEAN CORPUSCULAR HGB CONC 33.5 g/dL (33.0-35.0); MEAN CORPUSCULAR VOLUME 84.1 fL (80.0-100.0); MEAN PLATELET VOLUME 7.2 fL (7.4-11.0); MONOCYTES # (AUTO) 0.6 x10^3/uL (0.3-0.8); MONOCYTES % (AUTO) 7.5 % (0.0-13.0); NEUTROPHILS # (AUTO) 5.5 x10^3/uL (2.2-4.8); NEUTROPHILS % (AUTO) 69.1 % (42.0-75.0); PLATELET COUNT 217 X10^3/uL (150.0-450.0); RED BLOOD COUNT 3.73 X10^6/uL (4.7-6.0); RED CELL DISTRIBUTION WIDTH 14.3 % (11.6-16.5); WHITE BLOOD COUNT 7.9 X10^3/uL (3.6-10.0)
[2023-09-07 05:55] LABS: ALBUMIN 2.9 g/dL (3.4-5.0); CARBON DIOXIDE 28.8 mmol/L (21-32); COR CA(FOR HYPOALB) 8.9 mg/dL (8.5-10.1); CREATININE 1.7 mg/dL (0.70-1.30); POTASSIUM 4.3 mmol/L (3.5-5.1); TOTAL PROTEIN 6.2 g/dL (6.4-8.2)
[2023-09-07] MEDS: D5 1/2 NS 1,000 ML 1,000 ML IV SCH (06:08)
[2023-09-07] MEDS: NEURONTIN CAP 100 MG PO SCH (06:08)
[2023-09-07 08:49] VITALS: BP 146/68; PULSE 85; RESP 20; TEMP 97.6; O2SAT 96
[2023-09-07] MEDS: PULMICORT NEB TX 0.5 MG NEB SCH (09:25)
[2023-09-07] MEDS: PROVENTIL NEB TX 0.083% 2.5MG/ 3ML NEB SCH (09:25)
[2023-09-07] MEDS: EFFEXOR XR 150 MG CAP 24-HR PO SCH (10:38)
[2023-09-07] MEDS: LITHIUM CARBONATE 150 MG PO SCH ×2 (10:38→10:51)
[2023-09-07] MEDS: AMARYL TAB 4 MG PO SCH (10:38)
[2023-09-07] MEDS: LOVENOX INJ 40 MG SYR SC SCH (10:38)
[2023-09-07] MEDS: SYNTHROID 88 mcg TAB PO SCH (10:39)
== END 2023-09-07 13:00 | disposition home or self-care (01) ==
LOC: ER 15:37 → MED/SURG 15:37
PROVIDERS: ADMIT Obstetrics & Gynecology Obstetrics; ATTEND Internal Medicine
DX: E03.8 Other specified hypothyroidism; R55 Syncope and collapse; G47.30 Sleep apnea, unspecified; E11.65 Type 2 diabetes mellitus with hyperglycemia; F32.A Depression, unspecified; W18.39XA Other fall on same level, initial encounter; F41.8 Other specified anxiety disorders; E78.2 Mixed hyperlipidemia; N18.9 Chronic kidney disease, unspecified; J44.9 Chronic obstructive pulmonary disease, unspecified; Z59.86 Financial insecurity; I44.0 Atrioventricular block, first degree; E11.22 Type 2 diabetes mellitus with diabetic chronic kidney disease; R42 Dizziness and giddiness; N17.8 Other acute kidney failure; E86.0 Dehydration; I12.9 Hypertensive chronic kidney disease with stage 1 through stage 4 chronic kidney disease, or unspecified chronic kidney disease; I95.89 Other hypotension; Z79.4 Long term (current) use of insulin

== ENCOUNTER 2024-05-11 09:26 | Inpatient (IN) ==
--- NOTE | 2024-05-11 09:44 | DR.GENAD ---
HPI Time Seen Time Seen by Provider: 05/11/24 09:40 COVID-19 Coronavirus risk:travel/contact w/high risk person: No Has patient experienced Coronavirus symptoms: No Nurses notes reviewed Nurses Notes Review: Yes PMH PMH Past Medical History: Anxiety, COPD, Depression, Diabetes, Dyslipidemia, Hypertension, Hypothyroidism and Sleep Apnea Past Surgical History: Yes Surgical History: Other Family History Family Medical History: Diabetes Mellitus and Cancer Social History Do you use any recreational Drugs:: No ROS Review of Systems Constitutional: Weakness and Fatigue Eyes: No Symptoms Reported ENTM: No Symptoms Reported; negative Nose Discharge or Nose Congestion Respiratoy: No Symptoms Reported; negative Moist Cough or Short of Breath Cardiovascular: No Symptoms Reported; negative Chest Pain Gastrointestinal/Abdominal: No Symptoms Reported; negative Abdominal Pain, Diarrhea, Nausea or Vomiting Genitourinary: No Symptoms Reported; negative Dysuria Neurological: Weakness; negative Headache Musculoskeletal: No Symptoms Reported; negative Muscle Pain Integumentary: No Symptoms Reported; negative Rash or Juandice Hematologic/Lymphatic: No Symptoms Reported Endocrine: No Symptoms Reported; negative Increased Thirst or Increased Urine Psychiatric: No Symptoms Reported All Other Systems: Reviewed and Negative PE Vital Signs Vitals: Vital Signs Temperature 98.1 F Pulse Rate 71 Respiratory Rate 16 Blood Pressure 133/74 Blood Pressure 114/56 O2 Sat by Pulse Oximetry 97 General Limitations: No Limitations General Appearance: Alert and In No Apparent Distress Head Head Exam: Normal Inspection Eyes Eye exam: Normal Appearance; negative Scleral Icterus or Conjunctival Injection ENT ENT Exam: Normal Exam, Normal Oropharynx, Normal External Ear Exam and TM's Normal Bilaterally Neck Neck Exam: Normal Inspection and Trachea Midline; negative Tenderness Chest Chest Inspection: Normal Inspection and Symmetric Chest Wall Rise; negative Tenderness Respiratory Respiratory Exam: Normal Lung Sounds Bilat; negative Accessory Muscle Use, Chest Wall Tenderness or Respiratory Distress Respiratory Exam: Bilateral: Clear to Auscultation Cardiovascular Cardiovascular Exam: Regular Rate, Normal Rhythm and Normal Heart Sounds; negative Systolic Murmur or Diastolic Murmur Abdominal Exam Abdominal Exam: Normal Inspection, Normal Bowel Sounds and Soft; negative Tenderness Extremities Extremities Exam: Normal Inspection and Normal Capillary Refill Back Back Exam: Normal Inspection; negative (R) CVA Tenderness or (L) CVA Tenderness Neurologic Neurological Exam: Alert and Oriented X3; negative Motor Sensory Deficit Psychiatric Psychiatric Exam: Normal Affect and Normal Mood Skin Skin Exam: Warm and Intact ROR Labs Reviewed 05/11/24 10:22 05/11/24 10:22 Laboratory: WBC 11.6 X10^3/uL (3.6-10.0) H 05/11/24 10:22 RBC 3.85 X10^6/uL (4.7-6.0) L 05/11/24 10:22 Hgb 11.2 g/dL (13.5-18.0) L 05/11/24 10:22 Hct 33.5 % (42.0-54.0) L 05/11/24 10:22 MCV 86.9 fL (80.0-100.0) 05/11/24 10:22 MCH 29.1 pg (27.0-34.0) 05/11/24 10:22 MCHC 33.5 g/dL (33.0-35.0) 05/11/24 10:22 RDW 14.6 % (11.6-16.5) 05/11/24 10:22 Plt Count 165 X10^3/uL (150.0-450.0) 05/11/24 10:22 MPV 6.9 fL (7.4-11.0) L 05/11/24 10:22 Neut % (Auto) 79.9 % (42.0-75.0) H 05/11/24 10:22 Lymph % (Auto) 10.3 % (21.0-51.0) L 05/11/24 10:22 [place] % (Auto) 8.0 % (0.0-13.0) 05/11/24 10:22 Eos % (Auto) 1.4 % (0.9-2.9) 05/11/24 10:22 Baso % (Auto) 0.4 % (0.2-1.0) 05/11/24 10:22 Neut # (Auto) 9.3 x10^3/uL (2.2-4.8) H 05/11/24 10:22 Lymph # (Auto) 1.2 X10^3/uL (1.3-2.9) L 05/11/24 10:22 [place] # (Auto) 0.9 x10^3/uL (0.3-0.8) H 05/11/24 10:22 Eos # (Auto) 0.2 x10^3/uL (0.0-0.2) 05/11/24 10:22 Baso # (Auto) 0.1 X10^3/uL (0.0-0.1) 05/11/24 10:22 Absolute Nucleated RBC 0.0 /100WBC 05/11/24 10:22 Sodium 132 mmol/L (136-145) L 05/11/24 10:22 Corrected Sodium TNP 05/11/24 10:22 Potassium 5.3 mmol/L (3.5-5.1) H 05/11/24 10:22 Chloride 98 mmol/L (98-107) 05/11/24 10:22 Carbon Dioxide 29.7 mmol/L (21-32) 05/11/24 10:22 BUN 52 mg/dL (7-18) H 05/11/24 10:22 Creatinine 3.81 mg/dL (0.70-1.30) H 05/11/24 10:22 Est GFR (MDRD) Af Amer 21 (>60) L 05/11/24 10:22 Est GFR (MDRD) Non-Af 17 (>60) L 05/11/24 10:22 Glucose 91 mg/dL (65-99) 05/11/24 10:22 Calcium 8.2 mg/dL (8.5-10.1) L 05/11/24 10:22 Corrected Calcium TNP 05/11/24 10:22 Total Bilirubin 0.50 mg/dL (0.2-1.0) 05/11/24 10:22 AST 12 Units/L (15-37) L 05/11/24 10:22 ALT 12 Units/L (12-78) 05/11/24 10:22 Alkaline Phosphatase 88 Units/L (46-116) 05/11/24 10:22 Creatine Kinase 49 Units/L (39-308) 05/11/24 10:22 Troponin I High Sens 7.6 ng/L (4.0-60.0) 05/11/24 10:22 B-Natriuretic Peptide 11.2 pg/mL (0-79) 05/11/24 10:22 Total Protein 7.1 g/dL (6.4-8.2) 05/11/24 10:22 Albumin 3.5 g/dL (3.4-5.0) 05/11/24 10:22 Globulin 3.6 g/dL (2.5-4.5) 05/11/24 10:22 Albumin/Globulin Ratio 1.0 Ratio (1.1-2.1) L 05/11/24 10:22 Specimen Type Clean catch urine 05/11/24 12:11 Urine Color Pale yellow (YELLOW) 05/11/24 12:11 Urine Appearance Slightly hazy (CLEAR) 05/11/24 12:11 Urine pH 5.0 (5.0 - 8.0) 05/11/24 12:11 Ur Specific [place] 1.020 (1.000-1.030) 05/11/24 12:11 Urine Protein 1+ (NEGATIVE) 05/11/24 12:11 Urine Glucose (UA) 2+ (NEGATIVE) 05/11/24 12:11 Urine Ketones Negative (NEGATIVE) 05/11/24 12:11 Urine Blood 4+ (NEGATIVE) 05/11/24 12:11 Urine Nitrite Negative (NEGATIVE) 05/11/24 12:11 Urine Bilirubin Negative (NEGATIVE) 05/11/24 12:11 Urine Urobilinogen Normal (NORMAL) 05/11/24 12:11 Ur Leukocyte Esterase Negative (NEGATIVE) 05/11/24 12:11 Urine RBC 5-10 /HPF (0-3) A 05/11/24 12:11 Urine WBC None seen /HPF (0-5) 05/11/24 12:11 Ur Squamous Epith Cells Rare /HPF (NEGATIVE) 05/11/24 12:11 Amorphous Sediment Trace /HPF (NEGATIVE) 05/11/24 12:11 Urine Bacteria Trace /HPF (NEGATIVE) 05/11/24 12:11 Hyaline Casts Rare /LPF (NEGATIVE) 05/11/24 12:11 Urine Sperm Few /HPF (NEGATIVE) 05/11/24 12:11 Ur Culture Indicated? No/not indicated 05/11/24 12:11 Opioid Opioid Risk Tool Age (Armando box if 16-45): No History of Preadolescent Sexual Abuse: No Total: 0 Total Score Risk Category: Low Risk Copyright: Anton SANTIZO predicting aberrant behaviors Discharge Plan Discharge Plan Patient Disposition: 09 ADMITTED INPATIENT Condition: Stable Orders to Discharge Patient Discharge Orders: Transfer (Routine); Ordered 05/11/24 Ordered By: DEQUAN BLACK
--- NOTE | 2024-05-11 09:53 | EKG ---
Test Reason : generalized weakness Blood Pressure : */* mmHG Vent. Rate : 67 BPM Atrial Rate : 67 BPM P-R Int : 230 ms QRS Dur : 174 ms QT Int : 442 ms P-R-T Axes : 51 -60 25 degrees QTc Int : 467 ms Sinus rhythm with 1st degree AV block Right bundle branch block Left anterior fascicular block Bifascicular block Abnormal ECG Confirmed by Jorge Guthrie MD ([id number]) on 05/11/2024 6:27:31 PM Referred By: Confirmed By: Jorge Guthrie MD
[2024-05-11 10:27] LABS: BASOPHILS # (AUTO) 0.1 X10^3/uL (0.0-0.1); BASOPHILS % (AUTO) 0.4 % (0.2-1.0); EOSINOPHILS # (AUTO) 0.2 x10^3/uL (0.0-0.2); EOSINOPHILS % (AUTO) 1.4 % (0.9-2.9); HEMATOCRIT 33.5 % (42.0-54.0); HEMOGLOBIN 11.2 g/dL (13.5-18.0); LYMPHOCYTES # (AUTO) 1.2 X10^3/uL (1.3-2.9); LYMPHOCYTES % (AUTO) 10.3 % (21.0-51.0); MEAN CORPUSCULAR HEMOGLOBIN 29.1 pg (27.0-34.0); MEAN CORPUSCULAR HGB CONC 33.5 g/dL (33.0-35.0); MEAN CORPUSCULAR VOLUME 86.9 fL (80.0-100.0); MEAN PLATELET VOLUME 6.9 fL (7.4-11.0); MONOCYTES # (AUTO) 0.9 x10^3/uL (0.3-0.8); NEUTROPHILS # (AUTO) 9.3 x10^3/uL (2.2-4.8); NEUTROPHILS % (AUTO) 79.9 % (42.0-75.0); PLATELET COUNT 165 X10^3/uL (150.0-450.0); RED BLOOD COUNT 3.85 X10^6/uL (4.7-6.0); RED CELL DISTRIBUTION WIDTH 14.6 % (11.6-16.5); WHITE BLOOD COUNT 11.6 X10^3/uL (3.6-10.0)
[2024-05-11 10:41] LABS: ALANINE AMINOTRANSFERASE 12 Units/L (12-78); ALBUMIN 3.5 g/dL (3.4-5.0); ALKALINE PHOSPHATASE 88 Units/L (46-116); ASPARTATE AMINO TRANSFERASE 12 Units/L (15-37); BLOOD UREA NITROGEN 52 mg/dL (7-18); CALCIUM 8.2 mg/dL (8.5-10.1); CARBON DIOXIDE 29.7 mmol/L (21-32); CHLORIDE 98 mmol/L (98-107); CREATINE KINASE 49 Units/L (39-308); CREATININE 3.81 mg/dL (0.70-1.30); GLUCOSE 91 mg/dL (65-99); POTASSIUM 5.3 mmol/L (3.5-5.1); SODIUM 132 mmol/L (136-145); TOTAL PROTEIN 7.1 g/dL (6.4-8.2); eGFR NON BLACK RACES 17 (>60)
[2024-05-11] MEDS: NS 1,000 ML IV 1,000 ML IV SCH (12:18)
[2024-05-11 12:29] LABS: APPEARANCE,URINE SLIGHTLY HAZY (CLEAR); BACTERIA,URINE TRACE /HPF (NEGATIVE); BILIRUBIN,URINE NEGATIVE (NEGATIVE); BLOOD/HEMOGLOBIN,URINE 4+ (NEGATIVE); COLOR,URINE PALE YELLOW (YELLOW); GLUCOSE, URINE 2+ (NEGATIVE); KETONES,URINE NEGATIVE (NEGATIVE); LEUKOCYTE ESTERASE ,URINE NEGATIVE (NEGATIVE); NITRITES,URINE NEGATIVE (NEGATIVE); PROTEIN,URINE 1+ (NEGATIVE); SQUAMOUS EPITHELIAL CELL,UR RARE /HPF (NEGATIVE); UROBILINOGEN,URINE NORMAL (NORMAL)
[2024-05-11 12:30] LABS: HYALINE CASTS, URINE RARE /LPF (NEGATIVE); SPERM,URINE FEW /HPF (NEGATIVE)
[2024-05-11] MEDS ORDERED: NS 1,000 ML IV 1,000 ML IV SCH (14:02)
[2024-05-11] MEDS: PROVENTIL NEB TX 0.083% 2.5MG/ 3ML NEB SCH (20:22)
[2024-05-12 05:58] LABS: BASOPHILS % (AUTO) 0.3 % (0.2-1.0); EOSINOPHILS # (AUTO) 0.1 x10^3/uL (0.0-0.2); EOSINOPHILS % (AUTO) 0.8 % (0.9-2.9); HEMATOCRIT 35.1 % (42.0-54.0); HEMOGLOBIN 11.8 g/dL (13.5-18.0); LYMPHOCYTES # (AUTO) 0.9 X10^3/uL (1.3-2.9); LYMPHOCYTES % (AUTO) 8.1 % (21.0-51.0); MEAN CORPUSCULAR HEMOGLOBIN 29.2 pg (27.0-34.0); MEAN CORPUSCULAR HGB CONC 33.5 g/dL (33.0-35.0); MEAN CORPUSCULAR VOLUME 87.2 fL (80.0-100.0); MEAN PLATELET VOLUME 7.6 fL (7.4-11.0); MONOCYTES # (AUTO) 0.9 x10^3/uL (0.3-0.8); MONOCYTES % (AUTO) 8.7 % (0.0-13.0); NEUTROPHILS # (AUTO) 8.9 x10^3/uL (2.2-4.8); NEUTROPHILS % (AUTO) 82.1 % (42.0-75.0); PLATELET COUNT 173 X10^3/uL (150.0-450.0); RED BLOOD COUNT 4.03 X10^6/uL (4.7-6.0); RED CELL DISTRIBUTION WIDTH 14.3 % (11.6-16.5); WHITE BLOOD COUNT 10.9 X10^3/uL (3.6-10.0)
[2024-05-12 06:13] LABS: ALBUMIN 3.3 g/dL (3.4-5.0); CALCIUM 8.4 mg/dL (8.5-10.1); CARBON DIOXIDE 28.3 mmol/L (21-32); CREATININE 2.8 mg/dL (0.70-1.30); POTASSIUM 5.3 mmol/L (3.5-5.1)
[2024-05-12 07:47] VITALS: BMI 43.0
[2024-05-12] MEDS ORDERED: ZOFRAN TAB 4 MG PO PRN (10:50)
--- NOTE | 2024-05-12 11:47 | DR.H&P ---
H&P History & Physical for Day of: H&P Date: 05/12/24 Chief Complaint Chief Complaint: Hypoglycemia History of Present Illness History of Present Illness: Patient is a 64-year-old male with a past medical history of COPD bipolar disorder, hypertension, hypothyroidism, sleep apnea, type 2 diabetes mellitus presenting after noting he was hypoglycemic at home. In the ED he was also noted to have acute on chronic renal failure. Labs/imaging: WBC 10.9, hemoglobin 11.8, platelets 173, sodium 137, potassium 5.3, creatinine 3.812.80, glucose 152. Patient was admitted for hypoglycemia and acute on chronic renal failure. He was started on IV fluids normal saline at 125 mL/h. Will hold nephrotoxic agents at this time. Will restart home medications. Order SSI. Otherwise continue current treatment plan. Continue closely monitor and follow-up labs in the morning. Past Medical History Past Medical History: Anxiety, COPD, Depression, Diabetes, Dyslipidemia, Hypertension, Hypothyroidism and Sleep Apnea Past Surgical History Surgical History: Other Family History Family Medical History: Diabetes Mellitus and Cancer Social History Does patient currently use any type of tobacco product: No Have you used tobacco products in the last 12 months: No Type of Tobacco Use: None Does any household member use tobacco: No Alcohol Use: None Drug Use: None Medications Home Medications: Home Medications Medication Instructions Recorded Confirmed Type clonazepam 1 mg tablet 1 mg PO BID 05/07/23 05/11/24 History furosemide 20 mg tablet 20 mg PO BID 05/07/23 05/11/24 History gabapentin 100 mg capsule 100 mg PO TID 05/07/23 05/11/24 History glimepiride 4 mg tablet 4 mg PO BID 05/07/23 05/11/24 History levothyroxine 88 mcg tablet 88 mcg PO QAM 05/07/23 05/11/24 History lithium carbonate 150 mg capsule 150 mg PO BID 05/07/23 05/11/24 History losartan 100 mg tablet 100 mg PO QAM 05/07/23 05/11/24 History metoprolol succinate 25 mg 25 mg PO QDAY 05/07/23 05/11/24 History tablet,extended release 24 hr ondansetron HCl 4 mg tablet 4 mg PO QID PRN 05/07/23 05/11/24 History quetiapine 200 mg tablet 200 mg PO BID 05/07/23 05/11/24 History rosuvastatin 20 mg tablet 20 mg PO QPM 05/07/23 05/11/24 History trazodone 150 mg tablet 150 mg PO HS 05/07/23 05/11/24 History venlafaxine 150 mg 150 mg PO QDAY 05/07/23 05/11/24 History capsule,extended release 24 hr dapagliflozin propanediol 10 mg 10 mg PO QAM 09/06/23 05/11/24 History tablet (Farxiga) semaglutide 1 mg/dose (4 mg/3 mL) 1 mg subcut QWEEK 09/06/23 05/11/24 History subcutaneous pen injector (Ozempic) insulin degludec 200 unit/mL (3 35 unit subcut QDAY 05/11/24 05/11/24 History mL) subcutaneous pen (Tresiba FlexTouch U-200 insulin) insulin lispro 100 unit/mL 10 unit subcut TID 05/11/24 05/11/24 History subcutaneous pen Allergies Allergies Allergy/AdvReac Type Severity Reaction Status Date / Time No Known Drug Allergies Allergy Verified 05/12/24 10:46 Labs 05/12/24 05:20 05/12/24 05:20 Labs: Laboratory WBC 10.9 X10^3/uL (3.6-10.0) H 05/12/24 05:20 RBC 4.03 X10^6/uL (4.7-6.0) L 05/12/24 05:20 Hgb 11.8 g/dL (13.5-18.0) L 05/12/24 05:20 Hct 35.1 % (42.0-54.0) L 05/12/24 05:20 MCV 87.2 fL (80.0-100.0) 05/12/24 05:20 MCH 29.2 pg (27.0-34.0) 05/12/24 05:20 MCHC 33.5 g/dL (33.0-35.0) 05/12/24 05:20 RDW 14.3 % (11.6-16.5) 05/12/24 05:20 Plt Count 173 X10^3/uL (150.0-450.0) 05/12/24 05:20 MPV 7.6 fL (7.4-11.0) 05/12/24 05:20 Neut % (Auto) 82.1 % (42.0-75.0) H 05/12/24 05:20 Lymph % (Auto) 8.1 % (21.0-51.0) L 05/12/24 05:20 [place] % (Auto) 8.7 % (0.0-13.0) 05/12/24 05:20 Eos % (Auto) 0.8 % (0.9-2.9) L 05/12/24 05:20 Baso % (Auto) 0.3 % (0.2-1.0) 05/12/24 05:20 Neut # (Auto) 8.9 x10^3/uL (2.2-4.8) H 05/12/24 05:20 Lymph # (Auto) 0.9 X10^3/uL (1.3-2.9) L 05/12/24 05:20 [place] # (Auto) 0.9 x10^3/uL (0.3-0.8) H 05/12/24 05:20 Eos # (Auto) 0.1 x10^3/uL (0.0-0.2) 05/12/24 05:20 Baso # (Auto) 0.0 X10^3/uL (0.0-0.1) 05/12/24 05:20 Absolute Nucleated RBC 0.0 /100WBC 05/12/24 05:20 Sodium 137 mmol/L (136-145) 05/12/24 05:20 Corrected Sodium 138 mmol/L (136-145) 05/12/24 05:20 Potassium 5.3 mmol/L (3.5-5.1) H 05/12/24 05:20 Chloride 105 mmol/L (98-107) 05/12/24 05:20 Carbon Dioxide 28.3 mmol/L (21-32) 05/12/24 05:20 BUN 42 mg/dL (7-18) H 05/12/24 05:20 Creatinine 2.80 mg/dL (0.70-1.30) H 05/12/24 05:20 Est GFR (MDRD) Af Amer 30 (>60) L 05/12/24 05:20 Est GFR (MDRD) Non-Af 25 (>60) L 05/12/24 05:20 Glucose 152 mg/dL (65-99) H 05/12/24 05:20 POC Glucose (mg/dL) 113 mg/dL (65-99) H 05/12/24 11:39 Calcium 8.4 mg/dL (8.5-10.1) L 05/12/24 05:20 Corrected Calcium 9.0 mg/dL (8.5-10.1) 05/12/24 05:20 Total Bilirubin 0.40 mg/dL (0.2-1.0) 05/12/24 05:20 AST 9 Units/L (15-37) L 05/12/24 05:20 ALT 11 Units/L (12-78) L 05/12/24 05:20 Alkaline Phosphatase 92 Units/L (46-116) 05/12/24 05:20 Creatine Kinase 49 Units/L (39-308) 05/11/24 10:22 Troponin I High Sens 7.6 ng/L (4.0-60.0) 05/11/24 10:22 B-Natriuretic Peptide 11.2 pg/mL (0-79) 05/11/24 10:22 Total Protein 7.0 g/dL (6.4-8.2) 05/12/24 05:20 Albumin 3.3 g/dL (3.4-5.0) L 05/12/24 05:20 Globulin 3.7 g/dL (2.5-4.5) 05/12/24 05:20 Albumin/Globulin Ratio 0.9 Ratio (1.1-2.1) L 05/12/24 05:20 Specimen Type Clean catch urine 05/11/24 12:11 Urine Color Pale yellow (YELLOW) 05/11/24 12:11 Urine Appearance Slightly hazy (CLEAR) 05/11/24 12:11 Urine pH 5.0 (5.0 - 8.0) 05/11/24 12:11 Ur Specific [place] 1.020 (1.000-1.030) 05/11/24 12:11 Urine Protein 1+ (NEGATIVE) 05/11/24 12:11 Urine Glucose (UA) 2+ (NEGATIVE) 05/11/24 12:11 Urine Ketones Negative (NEGATIVE) 05/11/24 12:11 Urine Blood 4+ (NEGATIVE) 05/11/24 12:11 Urine Nitrite Negative (NEGATIVE) 05/11/24 12:11 Urine Bilirubin Negative (NEGATIVE) 05/11/24 12:11 Urine Urobilinogen Normal (NORMAL) 05/11/24 12:11 Ur Leukocyte Esterase Negative (NEGATIVE) 05/11/24 12:11 Urine RBC 5-10 /HPF (0-3) A 05/11/24 12:11 Urine WBC None seen /HPF (0-5) 05/11/24 12:11 Ur Squamous Epith Cells Rare /HPF (NEGATIVE) 05/11/24 12:11 Amorphous Sediment Trace /HPF (NEGATIVE) 05/11/24 12:11 Urine Bacteria Trace /HPF (NEGATIVE) 05/11/24 12:11 Hyaline Casts Rare /LPF (NEGATIVE) 05/11/24 12:11 Urine Sperm Few /HPF (NEGATIVE) 05/11/24 12:11 Ur Culture Indicated? No/not indicated 05/11/24 12:11 Review of Systems Constitutional: No Symptoms Reported Eyes: No Symptoms Reported ENT: No Symptoms Reported Respiratory: No Symptoms Reported Cardiovascular: No Symptoms Reported Gastrointestinal: No Symptoms Reported Genitourinary: No Symptoms Reported Musculoskeletal: No Symptoms Reported Skin: No Symptoms Reported Neurological: No Symptoms Reported Physical Exam Vital Signs: Vital Signs Temperature 98.3 F Temperature 98.8 F Pulse Rate [Left Radial] 83 Pulse Rate [Left Radial] 85 Pulse Rate 85 Respiratory Rate 21 Respiratory Rate 20 Blood Pressure [Left Arm] 164/80 Blood Pressure [Left Arm] 158/68 O2 Sat by Pulse Oximetry 97 O2 Sat by Pulse Oximetry 92 O2 Sat by Pulse Oximetry 92 Oriented: Normal Eyes: Normal Ear: Normal Nose: Normal Throat: Normal Respiratory: Clear Throughout Cardiovascular: Normal : Normal Auscultation: Bowel Sounds: Normal Palpation: Normal Tenderness: Normal Skin: Normal Musculoskeletal: Normal Psychiatric: Normal Mood Description: Calm and Appropriate Affect: Normal Speech Pattern: Clear and Appropriate Assessment/Plan (1) Acute renal failure superimposed on stage 3 chronic kidney disease: Status: Acute Plan: Continue IVF Hold nephrotoxic medications. 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
[2024-05-12] MEDS: EFFEXOR XR 150 MG CAP 24-HR PO SCH (14:03)
[2024-05-12] MEDS: TOPROL XL PO SCH (14:03)
[2024-05-12] MEDS: COZAAR PO SCH (14:04)
[2024-05-12] MEDS: LASIX PO SCH (14:04)
[2024-05-12] MEDS: KLONOPIN TAB 1 MG PO SCH (14:04)
[2024-05-12] MEDS: NEURONTIN CAP 100 MG PO SCH (14:05)
[2024-05-12] MEDS: LITHIUM CARBONATE (PLAIN) PO SCH (16:33)
[2024-05-12 19:41] VITALS: RESP 20
[2024-05-12] MEDS: DESYREL PO SCH (21:05)
[2024-05-12] MEDS: CRESTOR TAB 10 MG PO SCH (21:05)
[2024-05-13 04:13] VITALS: PULSE 81
[2024-05-13] MEDS: SYNTHROID 88 mcg TAB PO SCH (06:14)
[2024-05-13 06:19] LABS: BASOPHILS % (AUTO) 0.4 % (0.2-1.0); EOSINOPHILS # (AUTO) 0.1 x10^3/uL (0.0-0.2); EOSINOPHILS % (AUTO) 1.6 % (0.9-2.9); HEMATOCRIT 32.8 % (42.0-54.0); LYMPHOCYTES # (AUTO) 1.6 X10^3/uL (1.3-2.9); LYMPHOCYTES % (AUTO) 17.2 % (21.0-51.0); MEAN CORPUSCULAR HEMOGLOBIN 29.2 pg (27.0-34.0); MEAN CORPUSCULAR HGB CONC 33.6 g/dL (33.0-35.0); MEAN CORPUSCULAR VOLUME 86.9 fL (80.0-100.0); MEAN PLATELET VOLUME 7.1 fL (7.4-11.0); MONOCYTES # (AUTO) 0.9 x10^3/uL (0.3-0.8); MONOCYTES % (AUTO) 9.9 % (0.0-13.0); NEUTROPHILS # (AUTO) 6.5 x10^3/uL (2.2-4.8); NEUTROPHILS % (AUTO) 70.9 % (42.0-75.0); PLATELET COUNT 159 X10^3/uL (150.0-450.0); RED BLOOD COUNT 3.78 X10^6/uL (4.7-6.0); RED CELL DISTRIBUTION WIDTH 14.5 % (11.6-16.5); WHITE BLOOD COUNT 9.2 X10^3/uL (3.6-10.0)
[2024-05-13 06:36] LABS: ALANINE AMINOTRANSFERASE 11 Units/L (12-78); ALKALINE PHOSPHATASE 72 Units/L (46-116); ASPARTATE AMINO TRANSFERASE 12 Units/L (15-37); BLOOD UREA NITROGEN 31 mg/dL (7-18); CALCIUM 8.2 mg/dL (8.5-10.1); CARBON DIOXIDE 23.2 mmol/L (21-32); CHLORIDE 106 mmol/L (98-107); CREATININE 1.89 mg/dL (0.70-1.30); GLUCOSE 84 mg/dL (65-99); POTASSIUM 4.7 mmol/L (3.5-5.1); SODIUM 136 mmol/L (136-145); TOTAL PROTEIN 6.6 g/dL (6.4-8.2); eGFR NON BLACK RACES 39 (>60)
[2024-05-13] MEDS: LOVENOX INJ 40 MG SYR SC SCH (11:06)
[2024-05-13] MEDS: FARXIGA PO SCH (11:06)
[2024-05-13] MEDS: LITHIUM CARBONATE (PLAIN) PO SCH (11:06)
[2024-05-13 13:03] VITALS: BP 129/63; TEMP 98.2; O2SAT 97
== END 2024-05-13 12:05 | disposition home or self-care (01) | DRG 683 ==
LOC: ER 09:26 → MED/SURG 12:39
PROVIDERS: ADMIT Family Medicine; ATTEND Internal Medicine
DX: F31.89 Other bipolar disorder; E03.8 Other specified hypothyroidism; N18.32 Chronic kidney disease, stage 3b; E87.1 Hypo-osmolality and hyponatremia; E78.2 Mixed hyperlipidemia; E11.649 Type 2 diabetes mellitus with hypoglycemia without coma; E86.0 Dehydration; Z79.4 Long term (current) use of insulin; E87.5 Hyperkalemia; N17.8 Other acute kidney failure; R53.1 Weakness